=== PATIENT | female | born 1995 | race African-American/Black ===

== ENCOUNTER 2021-08-18 11:46 | Emergency (ER) | payer MEDICARE, MEDICAID ==
[~2021-08-18] VITALS: Ht 157.5 cm; Wt 74.0 kg
[2021-08-18 12:00] VITALS: BP 103/73
[2021-08-18] MEDS ORDERED: IBUP-2029 MT (13:38)
[2021-08-18] MEDS ORDERED: IBUPROFEN 600MG TABLET PO ONE (13:45)
== END 2021-08-18 14:28 | disposition home or self-care (01) ==
LOC: ER 11:46
DX: S60.221A Contusion of right hand, initial encounter (principal); W22.01XA Walked into wall, initial encounter; Y93.89 Activity, other specified; Y92.9 Unspecified place or not applicable; Z91.018 Allergy to other foods
CPT/HCPCS: 73120; 81025; 99283

== ENCOUNTER 2021-09-09 06:23 | Emergency (ER) | payer MEDICARE, MEDICAID ==
[~2021-09-09] VITALS: Ht 157.5 cm; Wt 73.1 kg
[~2021-09-09 06:23] MED LIST: IBUP-2029 MT
[2021-09-09 06:40] VITALS: BP 108/79
[2021-09-09 07:45] LABS: CLARITY URINE CLOUDY (CLEAR); COLOR URINE YELLOW (YELLOW); KETONES URINE 3+ (NEGATIVE); LEUKOCYTE ESTERASE URINE 2+ (NEGATIVE); NITRITE URINE NEGATIVE (NEGATIVE); OCCULT BLOOD URINE TRACE (NEGATIVE); PROTEIN URINE 1+ (NEGATIVE)
[2021-09-09] MEDS ORDERED: DOXYCYCLINE HYCLATE 100MG CAPSULE PO ONE (07:45)
[2021-09-09] MEDS ORDERED: CEFTRIAXONE SODIUM 1 G/VIAL IM ONE (07:45)
[2021-09-09] MEDS ORDERED: DOXY100T2 PO (08:37)
[2021-09-09] MEDS ORDERED: NITR100C PO (08:37)
[2021-09-12 04:06] LABS: NEISSERIA GONORRHOEAE NAA Negative (Negative)
== END 2021-09-09 08:52 | disposition home or self-care (01) ==
LOC: ER 06:23
DX: N39.0 Urinary tract infection, site not specified (principal); Z91.018 Allergy to other foods
CPT/HCPCS: 81003; 81025; 87077; 87086; 87186; 87210; 87491; 87591; 96372; 99284; J0696

== ENCOUNTER 2022-01-05 21:47 | Emergency (ER) | payer MEDICARE, MEDICAID ==
[~2022-01-05] VITALS: Ht 157.5 cm; Wt 72.5 kg
[~2022-01-05 21:47] MED LIST changes: +DOXY100T2 PO; +NITR100C PO
[2022-01-05 22:01] VITALS: BP 116/82
== END 2022-01-05 23:30 | disposition left against medical advice (07) ==
LOC: ER 21:47
DX: Z53.21 Procedure and treatment not carried out due to patient leaving prior to being seen by health care provider (principal); J45.909 Unspecified asthma, uncomplicated

== ENCOUNTER 2022-11-07 17:59 | Emergency (ER) | payer MEDICARE, MEDICAID ==
[~2022-11-07] VITALS: Ht 157.5 cm; Wt 67.1 kg
[2022-11-07 18:33] VITALS: BP 110/85; PULSE 61; RESP 16; TEMP 98.7; O2SAT 99
== END 2022-11-07 20:48 | disposition home or self-care (01) ==
LOC: ER 17:59
DX: J06.9 Acute upper respiratory infection, unspecified (principal); J45.909 Unspecified asthma, uncomplicated; Z20.822 Contact with and (suspected) exposure to COVID-19
CPT/HCPCS: 99283; 87426; 87804 ×2; C9803

== ENCOUNTER 2023-04-30 12:05 | Emergency (ER) | payer MEDICARE, MEDICAID ==
[~2023-04-30] VITALS: Ht 157.5 cm; Wt 64.0 kg
[2023-04-30 12:07] VITALS: BP 120/78; PULSE 99; RESP 12; TEMP 98.4; O2SAT 99
[2023-04-30] MEDS ORDERED: METH-773 MT (13:53)
[2023-04-30] MEDS ORDERED: IBUP-2029 MT (13:53)
[2023-04-30] MEDS: KETOROLAC 60MG/2ML VIAL IM ONE (13:55)
== END 2023-04-30 14:02 | disposition home or self-care (01) ==
LOC: ER 12:05
DX: M54.2 Cervicalgia (principal); J45.909 Unspecified asthma, uncomplicated; Z79.899 Other long term (current) drug therapy
CPT/HCPCS: 99285; 72125; 81025; 96372; J1885

== ENCOUNTER 2023-05-23 11:22 | Emergency (ER) | payer MEDICARE, MEDICAID ==
[~2023-05-23] VITALS: Ht 157.5 cm; Wt 63.6 kg
[~2023-05-23 11:22] MED LIST changes: +METH-773 MT
[2023-05-23 11:56] VITALS: TEMP 98.4; O2SAT 99
[2023-05-23] MEDS ORDERED: IBUPROFEN 800MG TABLET PO ONE (12:15)
[2023-05-23] MEDS ORDERED: IBUP-2029 MT (12:15)
[2023-05-23 13:11] VITALS: BP 122/83; PULSE 98; RESP 16
[2023-05-23] MEDS: IBUPROFEN 600MG TABLET PO NR (13:11)
[2023-05-23] MEDS ORDERED: ACET325T52 MT (13:43)
== END 2023-05-23 13:30 | disposition home or self-care (01) ==
LOC: ER 11:22
DX: G56.01 Carpal tunnel syndrome, right upper limb (principal); J45.909 Unspecified asthma, uncomplicated
CPT/HCPCS: 29125; 73100; 81025; 99283

== ENCOUNTER 2024-02-23 08:47 | Emergency (ER) | payer MEDICARE, MEDICAID ==
[~2024-02-23] VITALS: Ht 160 cm; Wt 60.0 kg
[~2024-02-23 08:47] MED LIST changes: +ACET-3800 MT
[2024-02-23 08:57] VITALS: O2SAT 99
[2024-02-23 09:08] VITALS: BP 123/89; PULSE 87; RESP 18; TEMP 98.7; O2SAT 100
[2024-02-23 09:31] LABS: BASOPHILS % 0.2 % (0.0-2.0); EOSINOPHILS % 0.1 % (0.0-5.0); HEMATOCRIT. 38.4 % (36.0-48.0); HEMOGLOBIN. 12.8 g/dL (12.0-16.0); LYMPHOCYTES % 10.4 % (20.0-50.0); MEAN CORPUSCULAR HEMOGLOBIN 29.6 pg (28.0-32.0); MEAN CORPUSCULAR HGB CONC 33.4 g/dL (31.0-37.0); MEAN CORPUSCULAR VOLUME 88.7 fL (81.0-99.0); MEAN PLATELET VOLUME 9.9 fl (7.4-10.4); MONOCYTES % 5.4 % (2.0-8.0); NEUTROPHILS % 83.9 % (40.0-76.0); PLATELET 220 x1000/uL (130-400); RED BLOOD CELL COUNT 4.32 mill/uL (4.2-5.4); RED CELL DISTRIBUTION WIDTH 12.8 % (11.6-14.6); WHITE BLOOD COUNT 10.4 x1000/uL (4.5-11.0)
[2024-02-23 09:38] LABS: CHLORIDE 105 mEq/L (98-107); POTASSIUM 3.7 mEq/L (3.5-5.1); SODIUM 138 mEq/L (136-145)
[2024-02-23 09:39] LABS: CALCIUM 9.6 mg/dL (8.7-10.4); CARBON DIOXIDE 27 mEq/L (21-32)
[2024-02-23 09:44] LABS: CREATININE 0.7 mg/dL (0.6-1.0); GLUCOSE 93 mg/dL (70-105); UREA NITROGEN BLOOD 6 mg/dL (9-23)
[2024-02-23 09:56] LABS: CLARITY URINE TURBID (CLEAR); COLOR URINE YELLOW (YELLOW); GLUCOSE URINE NEGATIVE (NEGATIVE); KETONES URINE NEGATIVE (NEGATIVE); LEUKOCYTE ESTERASE URINE NEGATIVE (NEGATIVE); NITRITE URINE NEGATIVE (NEGATIVE); OCCULT BLOOD URINE NEGATIVE (NEGATIVE); PH URINE >=9.0 (4.5-8.0); PROTEIN URINE NEGATIVE (NEGATIVE); SPECIFIC GRAVITY URINE 1.015 (1.005-1.030)
[2024-02-23 10:14] LABS: BACTERIA URINE 1+; RBC URINE 0-2 /hpf (0-2); SQUAMOUS EPITHELIAL CELL URINE 1+ /lpf (RARE/1+); WBC URINE 0-2 /hpf (0-2); YEAST URINE NONE SEEN
[2024-02-23] MEDS ORDERED: ONDA-239 PO (12:44)
[2024-02-23] MEDS ORDERED: CEPH500C2 MT (12:44)
== END 2024-02-23 13:53 | disposition home or self-care (01) ==
LOC: ER 08:58
DX: O26.891 Other specified pregnancy related conditions, first trimester (principal); R10.9 Unspecified abdominal pain; Z3A.12 12 weeks gestation of pregnancy
CPT/HCPCS: 36415; 76801; 80048; 81003; 81025; 84702; 85025; 99284

== ENCOUNTER 2024-03-25 21:01 | Emergency (ER) | payer MEDICARE, MEDICAID ==
[~2024-03-25] VITALS: Ht 154.9 cm; Wt 63.0 kg
[~2024-03-25 21:01] MED LIST changes: +CEPH500C2 MT; +ONDA-239 PO
[2024-03-25 21:11] VITALS: TEMP 98.5; O2SAT 100
[2024-03-25 22:27] LABS: CLARITY URINE CLEAR (CLEAR); COLOR URINE YELLOW (YELLOW); GLUCOSE URINE NEGATIVE (NEGATIVE); KETONES URINE NEGATIVE (NEGATIVE); LEUKOCYTE ESTERASE URINE NEGATIVE (NEGATIVE); NITRITE URINE NEGATIVE (NEGATIVE); OCCULT BLOOD URINE NEGATIVE (NEGATIVE); PH URINE 7.5 (4.5-8.0); PROTEIN URINE NEGATIVE (NEGATIVE); SPECIFIC GRAVITY URINE 1.014 (1.005-1.030); UROBILINOGEN URINE 0.2 E.U./dL (0.2-1.0)
[2024-03-25 23:51] LABS: BASOPHILS % 0.4 % (0.0-2.0); EOSINOPHILS % 0.5 % (0.0-5.0); HEMATOCRIT. 37.6 % (36.0-48.0); HEMOGLOBIN. 12.7 g/dL (12.0-16.0); LYMPHOCYTES % 17.1 % (20.0-50.0); MEAN CORPUSCULAR HGB CONC 33.8 g/dL (31.0-37.0); MEAN CORPUSCULAR VOLUME 88.8 fL (81.0-99.0); MEAN PLATELET VOLUME 10.4 fl (7.4-10.4); MONOCYTES % 5.5 % (2.0-8.0); NEUTROPHILS % 76.5 % (40.0-76.0); PLATELET 214 x1000/uL (130-400); RED BLOOD CELL COUNT 4.23 mill/uL (4.2-5.4); RED CELL DISTRIBUTION WIDTH 12.6 % (11.6-14.6); WHITE BLOOD COUNT 10.5 x1000/uL (4.5-11.0)
[2024-03-26 00:09] LABS: CHLORIDE 105 mEq/L (98-107); POTASSIUM 3.8 mEq/L (3.5-5.1); SODIUM 138 mEq/L (136-145)
[2024-03-26 00:10] LABS: CALCIUM 9.5 mg/dL (8.7-10.4); CARBON DIOXIDE 24 mEq/L (21-32)
[2024-03-26 00:15] LABS: CREATININE 0.6 mg/dL (0.6-1.0); GLUCOSE 102 mg/dL (70-105)
[2024-03-26 00:17] LABS: ALANINE AMINOTRANSFERASE 19 IU/L (10-49); ALBUMIN 4.2 g/dL (3.2-4.8); ASPARTATE AMINOTRANSFERASE 20 IU/L (<34); BILIRUBIN DIRECT 0.1 mg/dL (<=3.0); BILIRUBIN TOTAL 0.5 mg/dL (0.1-1.0)
[2024-03-26 00:36] LABS: UREA NITROGEN BLOOD < 5 mg/dL (9-23)
[2024-03-26 00:57] LABS: BETA HYDROXYBUTYRATE 0.1 mMol/L (0.0-0.3)
[2024-03-26 01:50] VITALS: BP 125/85; PULSE 102; RESP 16; O2SAT 99
== END 2024-03-26 01:50 | disposition home or self-care (01) ==
LOC: ER 21:01
DX: O26.92 Pregnancy related conditions, unspecified, second trimester (principal); J45.909 Unspecified asthma, uncomplicated; Z3A.16 16 weeks gestation of pregnancy
CPT/HCPCS: 36415; 80048; 80076; 81003; 82010; 83735; 85025; 99283